=== PATIENT | male | born 1995 | race Caucasian/White ===

== ENCOUNTER 2019-08-25 18:11 | Emergency (ER) | payer OTHER, SELFPAY | END 2019-08-25 18:46 | disposition home or self-care (01) | LOC: NAV ERS 18:11 | DX: R51 Headache (principal); R11.2 Nausea with vomiting, unspecified; F32.9 Major depressive disorder, single episode, unspecified; F41.9 Anxiety disorder, unspecified; F17.210 Nicotine dependence, cigarettes, uncomplicated | CPT/HCPCS: 99284 ==

== ENCOUNTER 2019-08-25 19:27 | Emergency (ER) | payer OTHER, SELFPAY | END 2019-08-25 22:00 | disposition home or self-care (01) | LOC: NAV ERS 19:27 | DX: R11.2 Nausea with vomiting, unspecified (principal); R51 Headache; F31.9 Bipolar disorder, unspecified; F41.9 Anxiety disorder, unspecified; F43.10 Post-traumatic stress disorder, unspecified; F17.210 Nicotine dependence, cigarettes, uncomplicated | CPT/HCPCS: 99281 ==